=== PATIENT | female | born 1950 | race African-American/Black ===

== ENCOUNTER 2018-07-08 14:25 | Inpatient (IN) | payer OTHER ==
[2018-07-08 15:08] VITALS: BMI 21.9
--- NOTE | 2018-07-08 15:16 | HP ---
CIWA Score - CIWA Score Nausea/Vomitin Muscle Tremors: 3 Anxiety: 3 Agitation: 2 Paroxysmal Sweats: 1-Minimal Palms Moist Orientation: 0-Oriented Tacttile Disturbances: 1-Very Mild Itch/Numbness Auditory Disturbances: 1-Very Mild Visual Disturbances: 1-Very Mild Sensitivity Headache: 2-Mild CIWA-Ar Total Score: 16 Admission ROS BHS - HPI Chief Complaint: i need help to stop drinking alcohol Allergies/Adverse Reactions: Allergies Allergy/AdvReac Type Severity Reaction Status Date / Time No Known Allergies Allergy Verified 07/08/18 15:39 History of Present Illness: this 68 years old female with alcohol dependence seeking detox,withdrawal symptom,never been in the treatment before, hypertension on medication on med,hypercholeterolemia nicotine dependence anxiety and depression Exam Limitations: No Limitations - Ebola screening Have you traveled outside of the country in the last 21 days: No Have you had contact with anyone from an Ebola affected area: No Have you been sick,other than usual withdrawal symptoms: No Do you have a fever: No - Review of Systems Constitutional: Loss of Appetite, Malaise, Night Sweats, Changes in sleep, Weakness, Unintentional Wgt. Loss EENT: reports: Nose Congestion Respiratory: reports: No Symptoms reported Cardiac: reports: No Symptoms Reported GI: reports: Nausea, Poor Appetite, Abdominal cramping : reports: No Symptoms Reported Musculoskeletal: reports: Back Pain, Muscle Pain Integumentary: reports: Dryness Neuro: reports: Headache, Tremors Endocrine: reports: No Symptoms Reported Hematology: reports: No Symptoms Reported Psychiatric: reports: No Sypmtoms Reported, Judgement Intact, Mood/Affect Appropiate, Anxious, Depressed (insomnia) Patient History - Patient Medical History Hx Anemia: No Hx Asthma: No Hx Chronic Obstructive Pulmonary Disease (COPD): No Hx Cancer: No Hx Cardiac Disorders: No Hx Congestive Heart Failure: No Hx Hypertension: Yes (on meds) Hx Hypercholesterolemia: Yes (on meds) Hx Pacemaker: No HX Cerebrovascular Accident: No Hx Seizures: No Hx Dementia: No Hx Diabetes: No Hx Gastrointestinal Disorders: No Hx Liver Disease: No Hx Genitourinary Disorders: No Hx Sexually Transmitted Disorders: No Hx Renal Disease (ESRD): No Hx Thyroid Disease: No Hx Human Immunodeficiency Virus (HIV): No (last 8 years ago negative) Hx Hepatitis C: No Hx Depression: Yes Hx Suicide Attempt: No Hx Bipolar Disorder: No Hx Schizophrenia: No Other Medical History: no suicidal,no homicidal - Patient Surgical History Past Surgical History: Yes Other Surgical History: tubal ligation 46 years ago - PPD History Previous Implant?: Yes Documented Results: Positive w/o proof Implanted On Prior [facility] Admission?: No PPD to be Administered?: No - Reproductive History Patient is a Female of Child Bearing Age (11 -55 yrs old): No Patient : No - Smoking Cessation Smoking history: Current every day smoker Have you smoked in the past 12 months: Yes Aproximately how many cigarettes per day: 20 Hx Chewing Tobacco Use: No Initiated information on smoking cessation: Yes 'Breaking Loose' booklet given: 07/08/18 - Substance & Tx. History Hx Alcohol Use: Yes Hx Substance Use: No Substance Use Type: Alcohol Hx Substance Use Treatment: No - Substances Abused Alcohol Route: Oral Frequency: Daily Amount used: 1 bottle of wine Age of first use: 17 Date of Last Use: 07/07/18 Family Disease History - Family Disease History Family History: Denies Admission Physical Exam [facility] - Vital Signs Vital Signs: Vital Signs - 24 hr 07/08/18 15:06 Temperature 98.6 F Pulse Rate 81 Respiratory 19 Rate Blood Pressure 121/70 - Physical General Appearance: Yes: Moderate Distress, Tremorous, Irritable, Sweating, Anxious HEENTM: Yes: Normal ENT Inspection, [place], Pharynx Normal Respiratory: Yes: Lungs Clear, Normal Breath Sounds, No Respiratory Distress Neck: Yes: Within Normal Limits, Supple, Trachea in good position Breast: Yes: Breast Exam Deferred Cardiology: Yes: Within Normal Limits, Regular Rhythm, Regular Rate, S1, S2 Abdominal: Yes: Within Normal Limits, Normal Bowel Sounds, Non Tender, Soft Genitourinary: Yes: Within Normal Limits Back: Yes: Within Normal Limits Musculoskeletal: Yes: Back pain, Muscle Pain Extremities: Yes: Within Normal Limits, Normal Range of Motion, Tremors Neurological: Yes: tripoler II-XII NML intact, Fully Oriented, Alert, Motor Strength 5/5 Integumentary: Yes: Dry Lymphatic: Yes: Within Normal Limits - Diagnostic (1) Alcohol dependence with uncomplicated withdrawal Current Visit: Yes Status: Acute (2) Nicotine dependence Current Visit: Yes Status: Acute (3) Essential (primary) hypertension Current Visit: Yes Status: Acute (4) Hypercholesterolemia Current Visit: Yes Status: Acute (5) Nicotine dependence Current Visit: Yes Status: Acute (6) Anxiety and depression Current Visit: Yes Status: Acute Cleared for Admission [facility] - Detox or Rehab [facility] Level of Care: Medically Managed Detox Regimen/Protocol: Librium [facility] Breath Alcohol Content Breath Alcohol Content: 0 Urine Pregancy Test - Result Urine Test Results: Negative- NO Line Present Urine Drug Screen - Results Drug Screen Negative: Yes
[2018-07-08] MEDS ORDERED: NICOTINE POLACRILEX 2 MG GUM BC PRN (15:46)
[2018-07-08] MEDS ORDERED: IBUPROFEN 400 MG TABLET (FP) PO PRN (15:46)
[2018-07-08] MEDS ORDERED: MAGNESIUM HYDROX 2400MG/30ML ORAL SUSPENSION 30 ML CUP PO PRN (15:46)
[2018-07-08] MEDS ORDERED: MENTHOL/PHENOL 1 EACH UD MM PRN (15:46)
[2018-07-08] MEDS ORDERED: MAGNESIUM CITRATE 300 ML BOTTLE PO PRN (15:46)
[2018-07-08] MEDS ORDERED: LOPERAMIDE HCL 2 MG CAPSULE PO PRN (15:46)
[2018-07-08] MEDS ORDERED: ACETAMINOPHEN 325 MG TABLET (FP) PO PRN (15:46)
[2018-07-08] MEDS ORDERED: hydrOXYzine PAMOATE 25 MG CAPSULE (FP) PO PRN (15:46)
[2018-07-08] MEDS ORDERED: chlordiazePOXIDE HCL 25 MG CAPSULE PO PRN (15:46)
[2018-07-08] MEDS ORDERED: MAG HYDROX/AL HYDROX/SIMETH 30 ML UNIT-DOSE CUP PO PRN (15:46)
[2018-07-08] MEDS ORDERED: P-EPHED 60MG/TRIPROLIDI 2.5MG TABLET PO PRN (15:46)
[2018-07-08] MEDS ORDERED: guaiFENesin/D-METHORPHAN HB 10 ML UNIT-DOSE CUPS PO PRN (15:46)
[2018-07-08] MEDS: NICOTINE 21 MG/24 HOURS TOPICAL PATCH TD SCH (17:33)
[2018-07-08] MEDS: chlordiazePOXIDE HCL 25 MG CAPSULE PO SCH ×2 (17:34→22:23)
[2018-07-08] MEDS ORDERED: MELATONIN 5 MG TABLETS PO PRN (22:00)
[2018-07-08] MEDS: THIAMINE HCL 100 MG TABLET (FP) PO SCH (22:20)
[2018-07-08] MEDS: ROSUVASTATIN CA 20 MG TABLET (FP) PO SCH (23:08)
[2018-07-09 00:19] LABS: URINE APPEARANCE CLEAR; URINE BILIRUBIN NEGATIVE (<2.0 mg/dL); URINE COLOR LTYELLOW; URINE GLUCOSE (UA) NEGATIVE (NEGATIVE); URINE KETONE NEGATIVE (NEGATIVE); URINE LEUK ESTERASE NEGATIVE (NEGATIVE); URINE NITRITE NEGATIVE (NEGATIVE); URINE PROTEIN NEGATIVE (NEGATIVE); URINE UROBILINOGEN NEGATIVE mg/dL (0.2-1.0)
[2018-07-09] MEDS: chlordiazePOXIDE HCL 25 MG CAPSULE PO SCH ×4 (05:31→22:04)
--- NOTE | 2018-07-09 09:31 | CONSULT ---
[facility] Psychiatric Consult - Data Date of interview: 07/09/18 Admission source: [facility] Identifying data: Patient is a 68 year old single female, mother of one, domiciled, unemployed, and is supported by SSI and longterm benefits ([id number]). This is patient's first admission to detox at [facility]. Patient admitted to for alcohol dependence. Substance Abuse History: Smoking Cessation. Smoking history: Current every day smoker. Have you smoked in the past 12 months: Yes. Aproximately how many cigarettes per day: 20. Hx Chewing Tobacco Use: No. Initiated information on smoking cessation: Yes. 'Breaking Loose' booklet given: 07/08/18. - Substance & Tx. History. Hx Alcohol Use: Yes. Hx Substance Use: No. Substance Use Type : Alcohol. Hx Substance Use Treatment: No. - Substances Abused. Alcohol. Route: Oral. Frequency: Daily. Amount used: 1 bottle of wine. Age of first use: 17. Date of Last Use: 07/07/18 Medical History: hypertension, hypercholesterolemia Psychiatric History: Patient denies h/o psychiatric hospitalization, outpatient care, and suicide attempt. Patient's boyfriend December 2017. States her drinking has increased since the of her boyfriend. She denies current thoughts or urges to hurt self or others. Physical/Sexual Abuse/Trauma History: denies. Mental Status Exam - Mental Status Exam Alert and Oriented to: Time, Place, Person Cognitive Function: Good Patient Appearance: Well Groomed Mood: Hopeful, Euthymic Affect: Appropriate, Mood Congruent Patient Behavior: Appropriate Speech Pattern: Appropriate Voice Loudness: Normal Thought Process: Intact, Goal Oriented Thought Disorder: Not Present Hallucinations: Denies Suicidal Ideation: Denies Homicidal Ideation: Denies Insight/Judgement: Poor Sleep: Fair Appetite: Fair Muscle strength/Tone: Normal Gait/Station: Normal Psychiatric Findings - Problem List ([place] 1, 2,3) (1) Grieving Current Visit: Yes Status: Acute (2) Alcohol dependence with uncomplicated withdrawal Current Visit: Yes Status: Acute - Initial Treatment Plan Initial Treatment Plan: Psychoeducation provided. Detoxification in progress. Patient educated on the benefits and side effects of vistaril and melatonin.
[2018-07-09] MEDS ORDERED: PATIENT'S OWN MEDICATION (NON-FORMULARY) (Losartan/Hydrochlorothiazide [Losartan-Hctz 100- PO SCH (10:00)
[2018-07-09] MEDS: LOSARTAN POTASSIUM 50 MG TABLET (FP) PO SCH (10:16)
[2018-07-09] MEDS: NIFEdipine E.R. 30 MG TABLET (FP) PO SCH (10:16)
[2018-07-09] MEDS: PRENATAL VITAMINS W/ FOLIC ACID TABLET (FP) PO SCH (10:17)
[2018-07-09] MEDS: HYDROCHLOROTHIAZIDE 12.5 MG CAPSULE (FP) PO SCH (10:17)
[2018-07-09] MEDS: NICOTINE 21 MG/24 HOURS TOPICAL PATCH TD SCH (10:17)
[2018-07-09 10:28] LABS: HEMATOCRIT 41.7 % (32.4-45.2); HEMOGLOBIN 13.4 GM/dL (10.7-15.3); MCH 28.8 pg (25.7-33.7); MCHC 32.2 g/dl (32.0-36.0); MEAN CELL VOLUME 89.5 fl (80-96); MEAN PLT VOLUME 10.4 fl (7.5-11.1); PLATELET COUNT 186 K/MM3 (134-434); RBC 4.66 M/mm3 (3.60-5.2); RDW 13.8 % (11.6-15.6); WHITE BLOOD COUNT 5.7 K/mm3 (4.0-10.0)
[2018-07-09 11:24] LABS: ALBUMIN 3.2 g/dl (3.4-5.0); ALK PHOS 52 U/L (45-117); ANION GAP 11 MMOL/L (8-16); BILIRUBIN,TOTAL 0.8 mg/dL (0.2-1); BLOOD UREA NITROGEN 11 mg/dL (7-18); CALCIUM 8.9 mg/dL (8.5-10.1); CHLORIDE 104 mmol/L (98-107); CHOLESTEROL 122 mg/dL (50-200); CO2 25 mmol/L (21-32); CREATININE 0.6 mg/dL (0.55-1.3); GLUCOSE,RANDOM 89 mg/dL (74-106); HDL CHOLESTEROL 65 mg/dL (40-60); POTASSIUM 3.6 mmol/L (3.5-5.1); SGOT/AST 25 U/L (15-37); SGPT/ALT 31 U/L (13-61); SODIUM 141 mmol/L (136-145); TOT PROT 5.7 g/dl (6.4-8.2); TRIGLYCERIDES 83 mg/dL (0-150)
--- NOTE | 2018-07-09 11:59 | EKG ---
Test Reason : Blood Pressure : / mmHG Vent. Rate : 076 BPM Atrial Rate : 076 BPM P-R Int : 170 ms QRS Dur : 068 ms QT Int : 398 ms P-R-T Axes : 069 069 060 degrees QTc Int : 447 ms NORMAL SINUS RHYTHM NORMAL ECG NO PREVIOUS ECGS AVAILABLE Confirmed by MAYURI MCINTYRE, ROSIO ([id number]) on 07/09/2018 11:58:57 AM Referred By: Confirmed By:ROSIO MESSINA MD
--- NOTE | 2018-07-09 12:07 | PN ---
S CIWA - CIWA Score Nausea/Vomitin-No Nausea/No Vomiting Muscle Tremors: 3 Anxiety: 2 Agitation: 3 Paroxysmal Sweats: 3 Orientation: 0-Oriented Tacttile Disturbances: 0-None Auditory Disturbances: 0-None Visual Disturbances: 0-None Headache: 0-None Present CIWA-Ar Total Score: 11 BHS Progress Note (SOAP) Subjective: sweats mild shakes interrupted sleep agitation Objective: 07/09/18 12:06 Vital Signs Temperature 97.9 F 07/09/18 08:55 Pulse Rate 95 H 07/09/18 08:55 Respiratory Rate 16 07/09/18 08:55 Blood Pressure 115/74 07/09/18 08:55 O2 Sat by Pulse Oximetry (%) Laboratory Tests 07/08/18 07/09/18 07/09/18 00:00 07:00 07:00 WBC 5.7 RBC 4.66 Hgb 13.4 Hct 41.7 MCV 89.5 MCH 28.8 MCHC 32.2 RDW 13.8 Plt Count 186 MPV 10.4 Sodium 141 Potassium 3.6 Chloride 104 Carbon Dioxide 25 Anion Gap 11 BUN 11 Creatinine 0.6 Creat Clearance w eGFR > 60 Random Glucose 89 Calcium 8.9 Total Bilirubin 0.8 AST 25 ALT 31 Alkaline Phosphatase 52 Total Protein 5.7 L Albumin 3.2 L Triglycerides 83 Cholesterol 122 Total LDL Cholesterol 51 HDL Cholesterol 65 H Urine Color Ltyellow Urine Appearance Clear Urine pH 6.0 Ur Specific [place] 1.005 Urine Protein Negative Urine Glucose (UA) Negative Urine Ketones Negative Urine Blood Negative Urine Nitrite Negative Urine Bilirubin Negative Urine Urobilinogen Negative Ur Leukocyte Esterase Negative aaox3 ambulating no acute distress Assessment: 07/09/18 12:07 withdrawal sx Plan: continue detox increase fluids
[2018-07-09] MEDS: THIAMINE HCL 100 MG TABLET (FP) PO SCH (22:04)
[2018-07-09] MEDS: ROSUVASTATIN CA 20 MG TABLET (FP) PO SCH (22:04)
[2018-07-10] MEDS: chlordiazePOXIDE HCL 25 MG CAPSULE PO SCH ×2 (05:54→10:41)
--- NOTE | 2018-07-10 09:24 | PN ---
[facility] CIWA - CIWA Score Nausea/Vomitin-No Nausea/No Vomiting Muscle Tremors: 2 Anxiety: 1-Mildly Anxious Agitation: 1-Slight > Activity Paroxysmal Sweats: 2 Orientation: 0-Oriented Tacttile Disturbances: 1-Very Mild Itch/Numbness Auditory Disturbances: 0-None Visual Disturbances: 1-Very Mild Sensitivity Headache: 0-None Present CIWA-Ar Total Score: 8 S Progress Note (SOAP) Subjective: c/o of fatigue, constipation, interrupted sleep Objective: 07/10/18 09:21 Vital Signs Temperature 97.7 F 07/10/18 06:52 Pulse Rate 83 07/10/18 06:52 Respiratory Rate 18 07/10/18 06:52 Blood Pressure 96/67 07/10/18 06:52 O2 Sat by Pulse Oximetry (%) Laboratory Last Values WBC 5.7 K/mm3 (4.0-10.0) 07/09/18 07:00 RBC 4.66 M/mm3 (3.60-5.2) 07/09/18 07:00 Hgb 13.4 GM/dL (10.7-15.3) 07/09/18 07:00 Hct 41.7 % (32.4-45.2) 07/09/18 07:00 MCV 89.5 fl (80-96) 07/09/18 07:00 MCH 28.8 pg (25.7-33.7) 07/09/18 07:00 MCHC 32.2 g/dl (32.0-36.0) 07/09/18 07:00 RDW 13.8 % (11.6-15.6) 07/09/18 07:00 Plt Count 186 K/MM3 (134-434) 07/09/18 07:00 MPV 10.4 fl (7.5-11.1) 07/09/18 07:00 Sodium 141 mmol/L (136-145) 07/09/18 07:00 Potassium 3.6 mmol/L (3.5-5.1) 07/09/18 07:00 Chloride 104 mmol/L (98-107) 07/09/18 07:00 Carbon Dioxide 25 mmol/L (21-32) 07/09/18 07:00 Anion Gap 11 MMOL/L (8-16) 07/09/18 07:00 BUN 11 mg/dL (7-18) 07/09/18 07:00 Creatinine 0.6 mg/dL (0.55-1.3) 07/09/18 07:00 Creat Clearance w eGFR > 60 (>60) 07/09/18 07:00 Random Glucose 89 mg/dL (74-106) 07/09/18 07:00 Calcium 8.9 mg/dL (8.5-10.1) 07/09/18 07:00 Total Bilirubin 0.8 mg/dL (0.2-1) 07/09/18 07:00 AST 25 U/L (15-37) 07/09/18 07:00 ALT 31 U/L (13-61) 07/09/18 07:00 Alkaline Phosphatase 52 U/L (45-117) 07/09/18 07:00 Total Protein 5.7 g/dl (6.4-8.2) L 07/09/18 07:00 Albumin 3.2 g/dl (3.4-5.0) L 07/09/18 07:00 Triglycerides 83 mg/dL (0-150) 07/09/18 07:00 Cholesterol 122 mg/dL (50-200) 07/09/18 07:00 Total LDL Cholesterol 51 mg/dL (5-100) 07/09/18 07:00 HDL Cholesterol 65 mg/dL (40-60) H 07/09/18 07:00 Urine Color Ltyellow 07/08/18 00:00 Urine Appearance Clear 07/08/18 00:00 Urine pH 6.0 (5.0-8.0) 07/08/18 00:00 Ur Specific [place] 1.005 (1.001-1.035) 07/08/18 00:00 Urine Protein Negative (NEGATIVE) 07/08/18 00:00 Urine Glucose (UA) Negative (NEGATIVE) 07/08/18 00:00 Urine Ketones Negative (NEGATIVE) 07/08/18 00:00 Urine Blood Negative (NEGATIVE) 07/08/18 00:00 Urine Nitrite Negative (NEGATIVE) 07/08/18 00:00 Urine Bilirubin Negative (<2.0 mg/dL) 07/08/18 00:00 Urine Urobilinogen Negative mg/dL (0.2-1.0) 07/08/18 00:00 Ur Leukocyte Esterase Negative (NEGATIVE) 07/08/18 00:00 RPR Titer Nonreactive (NONREACTIVE) 07/09/18 07:00 Labs reviewed Patient Aox3, no distress No adventitious breath sounds ABD non-tender non distended full ROM, ambulating in the unit Assessment: 07/10/18 09:21 withdrawal sx constipation Plan: increase PO fluids ambulate colace 100mg TID high fiber diet continue detox continue to monitor
[2018-07-10] MEDS: NICOTINE 21 MG/24 HOURS TOPICAL PATCH TD SCH (10:41)
[2018-07-10] MEDS: PRENATAL VITAMINS W/ FOLIC ACID TABLET (FP) PO SCH (10:42)
[2018-07-10] MEDS: NIFEdipine E.R. 30 MG TABLET (FP) PO SCH (12:51)
[2018-07-10] MEDS: LOSARTAN POTASSIUM 50 MG TABLET (FP) PO SCH (12:51)
[2018-07-10] MEDS: HYDROCHLOROTHIAZIDE 12.5 MG CAPSULE (FP) PO SCH (12:51)
[2018-07-10] MEDS: DOCUSATE SODIUM 100 MG CAPSULE (FP) PO SCH ×2 (14:32→22:09)
[2018-07-10] MEDS: chlordiazePOXIDE 5 MG CAPSULE PO SCH ×2 (17:19→22:09)
[2018-07-10] MEDS: THIAMINE HCL 100 MG TABLET (FP) PO SCH (22:09)
[2018-07-10] MEDS: ROSUVASTATIN CA 20 MG TABLET (FP) PO SCH (22:09)
[2018-07-11] MEDS: DOCUSATE SODIUM 100 MG CAPSULE (FP) PO SCH ×3 (06:14→22:38)
[2018-07-11] MEDS: chlordiazePOXIDE 5 MG CAPSULE PO SCH ×2 (06:14→10:48)
[2018-07-11] MEDS: LOSARTAN POTASSIUM 50 MG TABLET (FP) PO SCH (10:47)
[2018-07-11] MEDS: NICOTINE 21 MG/24 HOURS TOPICAL PATCH TD SCH (10:48)
[2018-07-11] MEDS: HYDROCHLOROTHIAZIDE 12.5 MG CAPSULE (FP) PO SCH (10:48)
[2018-07-11] MEDS: PRENATAL VITAMINS W/ FOLIC ACID TABLET (FP) PO SCH (10:48)
[2018-07-11] MEDS: NIFEdipine E.R. 30 MG TABLET (FP) PO SCH (10:49)
--- NOTE | 2018-07-11 14:12 | PN ---
[facility] Progress Note Note: PATIENT STATES SHE IS FEELING OKAY. STATES SHE FEELS LIBRIUM IS MAKING HER TOO TIRED. DENIES HEADACHE, DIZZINESS AND SHAKES. Laboratory Tests 07/08/18 07/09/18 07/09/18 00:00 07:00 07:00 WBC 5.7 RBC 4.66 Hgb 13.4 Hct 41.7 MCV 89.5 MCH 28.8 MCHC 32.2 RDW 13.8 Plt Count 186 MPV 10.4 Sodium 141 Potassium 3.6 Chloride 104 Carbon Dioxide 25 Anion Gap 11 BUN 11 Creatinine 0.6 Creat Clearance w eGFR > 60 Random Glucose 89 Calcium 8.9 Total Bilirubin 0.8 AST 25 ALT 31 Alkaline Phosphatase 52 Total Protein 5.7 L Albumin 3.2 L Triglycerides 83 Cholesterol 122 Total LDL Cholesterol 51 HDL Cholesterol 65 H Urine Color Ltyellow Urine Appearance Clear Urine pH 6.0 Ur Specific [place] 1.005 Urine Protein Negative Urine Glucose (UA) Negative Urine Ketones Negative Urine Blood Negative Urine Nitrite Negative Urine Bilirubin Negative Urine Urobilinogen Negative Ur Leukocyte Esterase Negative RPR Titer 07/09/18 07:00 WBC RBC Hgb Hct MCV MCH MCHC RDW Plt Count MPV Sodium Potassium Chloride Carbon Dioxide Anion Gap BUN Creatinine Creat Clearance w eGFR Random Glucose Calcium Total Bilirubin AST ALT Alkaline Phosphatase Total Protein Albumin Triglycerides Cholesterol Total LDL Cholesterol HDL Cholesterol Urine Color Urine Appearance Urine pH Ur Specific [place] Urine Protein Urine Glucose (UA) Urine Ketones Urine Blood Urine Nitrite Urine Bilirubin Urine Urobilinogen Ur Leukocyte Esterase RPR Titer Nonreactive ALERT AND ORIENTED SKIN WARM AND DRY CAR S1S2 RESP CTA BL EXT NO EDEMA, FULL ROM NEURO CN [id number] GROSSLY INTACT, +PERRLA A/P: WITHDRAWAL SYNDROME LIBRIUM TO BE HELD FOR SEDATION CONTINUE DETOX ENCOURAGE ORAL FLUIDS CONTINUE TO MONITOR
[2018-07-11] MEDS: ROSUVASTATIN CA 20 MG TABLET (FP) PO SCH (22:38)
[2018-07-11] MEDS: chlordiazePOXIDE HCL 10 MG CAPSULE PO SCH ×2 (22:39→22:40)
[2018-07-11] MEDS: THIAMINE HCL 100 MG TABLET (FP) PO SCH (22:40)
[2018-07-12] MEDS: chlordiazePOXIDE HCL 10 MG CAPSULE PO SCH (06:03)
[2018-07-12] MEDS: DOCUSATE SODIUM 100 MG CAPSULE (FP) PO SCH (06:05)
[2018-07-12 07:02] VITALS: BP 136/67; PULSE 93; TEMP 97
[2018-07-12] MEDS: LOSARTAN POTASSIUM 50 MG TABLET (FP) PO SCH (09:27)
[2018-07-12] MEDS: HYDROCHLOROTHIAZIDE 12.5 MG CAPSULE (FP) PO SCH (09:27)
[2018-07-12] MEDS: NIFEdipine E.R. 30 MG TABLET (FP) PO SCH (09:27)
[2018-07-12] MEDS: PRENATAL VITAMINS W/ FOLIC ACID TABLET (FP) PO SCH (09:28)
--- NOTE | 2018-07-12 14:13 | DS ---
[facility] Detox Discharge Summary Admission Date: 07/08/18 Discharge Date: 07/12/18 - History Present History: Alcohol Dependence - Physical Exam Results Vital Signs: Vital Signs Temperature 97.0 F L 07/12/18 06:00 Pulse Rate 93 H 07/12/18 06:00 Respiratory Rate 18 07/12/18 06:00 Blood Pressure 136/67 07/12/18 06:00 O2 Sat by Pulse Oximetry (%) Pertinent Admission Physical Exam Findings: PATIENT COMPLETED DETOX TODAY AND WELL TOLERATED. DENIES SI/HI. MEDICALLY STABLE. ACCEPTED REHAB REFERRAL TO [facility] FOR 07/16/18. PATIENT ENCOURAGED TO AD.TTEND GROUP MEETINGS TO PREVENT RELASPE AND TO GO TO ER IF WITHDRAWAL SYMPTOMS OCCUR. D/C INSTRUCTIONS PROVIDED BY STAFF. - Treatment Hospital Course: Detox Protocol Followed, Detoxed Safely, Responded well, Discharged Condition Good, Rehab Referral Accepted Patient has Accepted a Rehab Referral to: [facility] 07/16/18 - Medication Discharge Medications: Ambulatory Orders Losartan/Hydrochlorothiazide [Losartan-Hctz 100-12.5 mg Tab] 1 each PO DAILY # 30 tablet 07/11/18 Metoprolol Succinate [Toprol Xl] 100 mg PO DAILY #30 tab.er.24h 07/11/18 Nifedipine ER [Procardia XL -] 30 mg PO DAILY #30 tab.er.24 07/11/18 Rosuvastatin Calcium [Crestor] 20 mg PO HS #30 tablet 07/11/18 - Diagnosis (1) Alcohol dependence with uncomplicated withdrawal Status: Resolved - AMA Did Patient Leave Against Medical Advice: No
== END 2018-07-12 09:41 | disposition home or self-care (01) | DRG 897 ==
LOC: YASAS 14:25 → Y6N 16:00
PROC: HZ2ZZZZ Detoxification Services for Substance Abuse Treatment (ICD-10-PCS; principal; 2018-07-08)
DX: F10.230 Alcohol dependence with withdrawal, uncomplicated (principal); F17.210 Nicotine dependence, cigarettes, uncomplicated; F41.8 Other specified anxiety disorders; F32.9 Major depressive disorder, single episode, unspecified; I10 Essential (primary) hypertension; E78.00 Pure hypercholesterolemia, unspecified; K59.00 Constipation, unspecified; Z63.4 Disappearance and death of family member
CPT/HCPCS: 36415; 71045-TC-FY; 80053; 80061; 81003; 83721; 85027; 86593; 93005; 93010